=== PATIENT | male | born 2000 | race Two or more races ===

== ENCOUNTER 2021-11-20 07:01 | Emergency (ER) | payer OTHER ==
[~2021-11-20] VITALS: Ht 175.3 cm; Wt 56.8 kg
[2021-11-20 07:14] VITALS: BP 131/64
== END 2021-11-20 07:53 | disposition home or self-care (01) ==
LOC: EMS 07:03
DX: H91.92 Unspecified hearing loss, left ear (principal)
CPT/HCPCS: 99281; Z7502